=== PATIENT | female | born 1945 | race Caucasian/White ===

== ENCOUNTER 2017-05-06 13:11 | Observation (INO) ==
--- NOTE | 2017-05-06 13:17 | Emergency Department Note ---
Disposition Clinical Impression: Dizziness, Nausea Chest pain Qualifiers: Chest pain type: unspecified Qualified Code(s): R07.9 - Chest pain, unspecified Disposition: Admitted As Inpatient Condition: Good Referrals: Yuriy Benz DO [Primary Care Provider] - Forms: ED Satisfaction Letter Time of Disposition: 15:40 General Adult HPI - General Chief complaint: ED Dizziness Stated complaint: vomiting, dizzy Time Seen by Provider: 05/06/17 13:13 Source: patient, EMS Mode of arrival: EMS Limitations: no limitations Nursing Notes Reviewed: Yes Vital Signs Reviewed: Yes - History of Present Illness HPI Narrative: 71-year-old who states been dizzy for the last couple of days been having some chest pain today. States that she got nauseated and dry he this morning. Patient states that she does have a very strong family history of heart disease , history of hypertension, history of diabetes. Pt Subjective Complaint: Dizziness, chest pain Onset (ago): Just EDUCATIONAL GUIDANCE COUNSELOR Location: chest Radiation: non-radiation Pain Severity: moderate Quality: aching Consistency: intermittent Improves with: nothing Worsens with: nothing Associated symptoms: Reports: chest pain, cough Treatments Prior to Arrival: none - Related Data Home Medications Medication Instructions Recorded Confirmed Aspirin [Lo-Dose Aspirin EC] 81 mg PO DAILY 05/19/16 05/06/17 Diltiazem CD (24hr) [Cardizem CD] 300 mg PO DAILY 05/19/16 05/06/17 GlipiZIDE [Glipizide Xl] 5 mg PO DAILY 05/19/16 05/06/17 Labetalol HCl 200 mg PO BID 05/19/16 05/06/17 Losartan [Cozaar] 25 mg PO DAILY 05/19/16 05/06/17 Omeprazole 20 mg PO DAILY 05/19/16 05/06/17 metFORMIN [Glucophage] 500 mg PO BIDWM 05/19/16 05/06/17 Potassium Citrate [Urocit-K] 10 meq PO TID 05/06/17 05/06/17 Allergies Allergy/AdvReac Type Severity Reaction Status Date / Time No Known Allergies Allergy Verified 05/06/17 13:16 All systems ED: reviewed and negative except as stated. Constitutional: Denies: fever, chills, weakness, weight change Eyes: Denies: eye pain, eye discharge, vision change ENT ED: Denies: ear pain, throat pain, dental pain, hearing loss, epistaxis, congestion, dysphagia Cardiovascular: Reports: chest pain. Denies: palpitations, dyspnea on exertion , edema, syncope Respiratory: Denies: cough, dyspnea, wheezes, hemoptysis, stridor Gastrointestinal: Denies: abdominal pain, nausea, vomiting, diarrhea, constipation, hematemesis, melena, hematochezia Genitourinary: Denies: dysuria, frequency, hematuria, discharge Musculoskeletal: Denies: back pain, neck pain, arthralgia, myalgia Integumentary: Denies: rash, abrasion, lesions Neurological: Reports: other (Dizziness). Denies: headache, weakness, numbness , paresthesias, confusion, abnormal gait, vertigo Psychiatric: Denies: anxiety, depression, suicidal thoughts, homicidal thoughts , auditory hallucinations, visual hallucinations Endocrine: Denies: fatigue Hematological/Lymphatic: Denies: easy bleeding, easy bruising Allergic/Immunologic: Denies: facial swelling, urticaria Past Medical History - Past Medical History Medical history: Reports: atrial fibrillation, diabetes, hypertension Psychiatric history: Reports: no psych history - Social History Smoking Status: Never smoker Smokeless Tobacco Status: No Alcohol use: Reports: none Drug use: Reports: none Physical Exam - General Limitations: no limitations General appearance: alert, in no apparent distress - Head Head exam: atraumatic, normocephalic, normal inspection - Eye Eye exam: Present: normal appearance - ENT ENT exam: normal exam, normal oropharynx, mucous membranes moist - Neck Neck exam: Present: normal inspection, full ROM, trachea midline - Chest Chest inspection: Present: normal inspection, symmetric chest wall rise - Respiratory Respiratory exam: Present: normal lung sounds bilaterally - Cardiovascular Cardiovascular exam: Present: regular rate, normal rhythm, normal heart sounds - Abdominal Exam Abdominal exam: Present: soft, Non-Tender. Absent: tenderness, distention, guarding, rebound, rigidity - Extremities Exam Extremities exam: Present: normal inspection, full ROM. Absent: tenderness, pedal edema - Expanded Lower Extremity Exam Neurovascular/Tendon exam: Present: normal capillary refill Gait: not tested/not observed - Back Exam Back exam: Present: normal inspection, full ROM. Absent: tenderness - Neurological Exam Neurological exam: Present: alert, oriented X3 - Psychiatric Psychiatric exam: Present: normal affect, normal mood - Skin Skin exam: Present: warm, dry, intact, normal color Course - Reevaluation(s) Reevaluation #1: 71-year-old with history of diabetes comes in complaining of some chest pain some dizziness and some nausea. Initial EKG shows no acute changes initial troponin is negative CT of the head was negative patient will be admitted for evaluation. Time: 15:38 - Consultations Consultation #1: Discussed with , admit. Time: 15:39 Vital Signs Temperature 98.8 F 05/06/17 13:12 Pulse Rate 74 05/06/17 13:12 Respiratory Rate 18 05/06/17 13:12 Blood Pressure 174/90 05/06/17 13:12 O2 Sat by Pulse Oximetry 93 05/06/17 13:12 Temperature 98.8 F 05/06/17 13:12 Pulse Rate 68 05/06/17 13:58 Respiratory Rate 18 05/06/17 13:58 Blood Pressure 172/84 05/06/17 13:58 O2 Sat by Pulse Oximetry 98 05/06/17 13:58 Oxygen Delivery Oxygen Delivery Room Air Medical Decision Making - Lab Data Lab results reviewed: Yes I reviewed the patient's lab results. Result diagrams: 05/06/17 13:22 05/06/17 13:22 Lab Results 05/06/17 05/06/17 05/06/17 Range/Units 13:22 13:22 13:22 WBC 5.5 (4.3-11.1) K/mcL RBC 4.64 (3.82-4.97) M/mcL Hgb 14.2 (11.5-15.4) g/dL Hct 41.2 (35.3-44.9) % MCV 88.8 (83.0-100.0) fL MCH 30.6 (28.0-33.3) pg MCHC 34.5 (31.6-35.5) g/dL RDW 13.4 (11.5-14.5) % Plt Count 184 (140-400) K/mcL MPV 10.7 (9.4-12.4) fL Immature Gran % 0.5 (0-4) % Seg Neutrophils % 72.2 % Lymphocytes % 18.3 % Monocytes % 6.8 % Eosinophils % 1.8 % Basophils % 0.4 % Neutrophils # 3.9 (1.6-8.9) K/mcL Lymphocytes # 1.0 (0.6-4.6) K/mcL Monocytes # 0.4 (0.0-1.3) K/mcL Eosinophils # 0.1 (0.0-0.6) K/mcL Basophils # 0.0 (0.0-0.2) K/mcL Sodium 135 L (136-145) mEq/L Potassium 4.8 (3.5-5.1) mEq/L Chloride 104 (98-107) mEq/L Carbon Dioxide 24 (23-29) mEq/L BUN 17 (8-23) mg/dL Creatinine 0.66 (0.60-1.20) mg/dL Est GFR ( Amer) > 60 (> 60) Est GFR (Non-Af Amer) > 60 (> 60) BUN/Creatinine Ratio 26 (6-26) Glucose 150 H (70-105) mg/dL Calculated Osmolality 284 (280-300) Calcium 9.5 (8.6-10.3) mg/dL Troponin I < 0.03 (< 0.04) ng/mL Urine Color (Yellow) Urine Clarity (Clear) Urine pH (5.0-8.0) pH Units Ur Specific [place] (1.010-1.025) Urine Protein (Neg-Trace) mg/dL Urine Glucose (UA) (Normal) mg/dL Urine Ketones (Negative) mg/dL Urine Blood (Negative) Urine Nitrite (Negative) Urine Bilirubin (Negative) Urine Urobilinogen (Normal) mg/dL Ur Leukocyte Esterase (Negative) Urine Microscopic RBC (0-3) per hpf Urine Microscopic WBC (0-3) per hpf Ur Squamous Epith Cells (None-Few) per lpf Urine Bacteria (None-Few) per hpf Hyaline Casts (None-Few) per lpf Ur Culture Indicated? (NO) 05/06/17 Range/Units 13:36 WBC (4.3-11.1) K/mcL RBC (3.82-4.97) M/mcL Hgb (11.5-15.4) g/dL Hct (35.3-44.9) % MCV (83.0-100.0) fL MCH (28.0-33.3) pg MCHC (31.6-35.5) g/dL RDW (11.5-14.5) % Plt Count (140-400) K/mcL MPV (9.4-12.4) fL Immature Gran % (0-4) % Seg Neutrophils % % Lymphocytes % % Monocytes % % Eosinophils % % Basophils % % Neutrophils # (1.6-8.9) K/mcL Lymphocytes # (0.6-4.6) K/mcL Monocytes # (0.0-1.3) K/mcL Eosinophils # (0.0-0.6) K/mcL Basophils # (0.0-0.2) K/mcL Sodium (136-145) mEq/L Potassium (3.5-5.1) mEq/L Chloride (98-107) mEq/L Carbon Dioxide (23-29) mEq/L BUN (8-23) mg/dL Creatinine (0.60-1.20) mg/dL Est GFR ( Amer) (> 60) Est GFR (Non-Af Amer) (> 60) BUN/Creatinine Ratio (6-26) Glucose (70-105) mg/dL Calculated Osmolality (280-300) Calcium (8.6-10.3) mg/dL Troponin I (< 0.04) ng/mL Urine Color Yellow (Yellow) Urine Clarity Cloudy A (Clear) Urine pH 8.0 (5.0-8.0) pH Units Ur Specific [place] 1.021 (1.010-1.025) Urine Protein Trace (Neg-Trace) mg/dL Urine Glucose (UA) Normal (Normal) mg/dL Urine Ketones Negative (Negative) mg/dL Urine Blood Negative (Negative) Urine Nitrite Negative (Negative) Urine Bilirubin Negative (Negative) Urine Urobilinogen Normal (Normal) mg/dL Ur Leukocyte Esterase Small H (Negative) Urine Microscopic RBC 0-3 (0-3) per hpf Urine Microscopic WBC 0-3 (0-3) per hpf Ur Squamous Epith Cells Many H (None-Few) per lpf Urine Bacteria Few (None-Few) per hpf Hyaline Casts None Seen (None-Few) per lpf Ur Culture Indicated? NO (NO) - Radiology Data Radiology results reviewed: Yes I reviewed the patient's radiology results. Chest X-Ray 05/06/17 13:13 IMPRESSION: 1. No active pulmonary disease. 2. Stable cardiomegaly without overt failure. D/ / Gustavo Martinez MD / Gustavo Martinez MD Interpreting Provider: Gustavo Martinez MD Head CT 05/06/17 13:13 IMPRESSION: 1. No acute intracranial abnormality. 2. Atherosclerosis. D/ / Jamar Nicholson MD / Jamar Nicholsno MD Interpreting Provider: Jamar Nicholson MD - EKG Data EKG #1 EKG attestation: Yes I reviewed and interpreted this EKG. EKG shows normal: sinus rhythm Rate: normal Rhythm: NSR, PVC's Heart block present: 1st Degree Interpretation: no acute changes
[2017-05-06 13:31] LABS: Basophils % 0.4 %; Eosinophils # 0.1 K/mcL (0.0-0.6); Eosinophils % 1.8 %; Hematocrit 41.2 % (35.3-44.9); Hemoglobin 14.2 g/dL (11.5-15.4); Immature Granulocytes % 0.5 % (0-4); Lymphocytes % 18.3 %; Mean Corpuscular HGB Conc 34.5 g/dL (31.6-35.5); Mean Corpuscular Hemoglobin 30.6 pg (28.0-33.3); Mean Corpuscular Volume 88.8 fL (83.0-100.0); Mean Platelet Volume 10.7 fL (9.4-12.4); Monocytes # 0.4 K/mcL (0.0-1.3); Monocytes % 6.8 %; Neutrophils # 3.9 K/mcL (1.6-8.9); Platelet Count 184 K/mcL (140-400); Red Blood Count 4.64 M/mcL (3.82-4.97); Red Cell Distribution Width 13.4 % (11.5-14.5); Segmented Neutrophils % 72.2 %
[2017-05-06 13:47] LABS: BUN/Creatinine Ratio 26 (6-26); Blood Urea Nitrogen 17 mg/dL (8-23); Calcium 9.5 mg/dL (8.6-10.3); Carbon Dioxide 24 mEq/L (23-29); Chloride 104 mEq/L (98-107); Glucose 150 mg/dL (70-105); Osmolality,Calculated 284 (280-300); Potassium 4.8 mEq/L (3.5-5.1); Sodium 135 mEq/L (136-145); eGFR For African Americans > 60 (> 60); eGFR For Non-African Americans > 60 (> 60)
[2017-05-06 13:52] LABS: Bilirubin,Urine Negative (Negative); Blood,Urine Negative (Negative); Clarity,Urine Cloudy (Clear); Color,Urine Yellow (Yellow); Glucose,Urine (UA) Normal (Normal); Ketones,Urine Negative (Negative); Leukocyte Esterase,Urine Small (Negative); Nitrite,Urine Negative (Negative); Protein,Urine Trace mg/dL (Neg-Trace); Specific Gravity,Urine 1.021 (1.010-1.025); Urobilinogen,Urine Normal (Normal)
[2017-05-06 13:54] LABS: Bacteria,Urine Few per hpf (None-Few); Hyaline Casts,Urine None Seen per lpf (None-Few); RBC,Urine 0-3 per hpf (0-3); Squamous Epithelial Cell,Urine Many per lpf (None-Few); WBC,Urine 0-3 per hpf (0-3)
[2017-05-06] MEDS ORDERED: D5% in Water 1,000 ML IVC PRN ×2 (17:11→17:15)
[2017-05-06] MEDS ORDERED: *HR* Dextrose 50 % in Water (Syg) 50 ML SYRINGE IVP PRN ×2 (17:11→17:15)
[2017-05-06] MEDS ORDERED: Naloxone 0.4 MG/ML INJ IVP PRN (17:11)
[2017-05-06] MEDS ORDERED: Dextrose Gel 15 GM/37.5 ML TUBE PO PRN ×4 (17:11→17:15)
--- NOTE | 2017-05-06 17:25 | Internal Med History&Physical ---
<Raymond Little - Last Filed: 05/06/17 17:20> Date of Encounter: 05/06/17 Time of Encounter: 17:20 Assessment and Plan (1) Chest pain Status: Acute Patient appears to have dizziness due to BPV. Reporting dizziness is exacerbated with position change but improves with rest. 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 Neurological exam is unremarkable, given her presentation appears to be PPD -Hydralazine 10 mg every 6 when necessary for sustained SBP greater than 160 -Heparin 5000 U SQ BID -Echocardiogram -Meclizine PRN for dizziness Qualifiers: Chest pain type: unspecified Qualified Code(s): R07.9 - Chest pain, unspecified (2) Dizziness Status: Acute Continues to persist, exacerbated with activity. See plan above (3) Nausea Status: Acute Resume Zofran (4) DVT prophylaxis Status: Acute Heparin 5000 subcutaneous twice a day Internal Medicine - H&P: HPI Chief complaint: Dizziness Admitted From: Home Plans for Post Hospital Care: Home History of present illness: Ms. Torres is a 71 year old female with PMH of A. fib, diabetes and hypertension. She presents today with persistent dizziness for the last couple of days. Additionally, she reports some mild squeezing chest pressure approximately 4 days ago there was intermittent and only upon arising out of bed in the morning. Reports it lasted approximately 1 minute and did not return. She denied any associated dizziness, nausea, or diaphoresis. However, her main concern is dizziness. She reports the dizziness is exacerbated by position change and goes away with rest. She was having a prior history of BPV which she has taken meclizine with improvement. Past Med Surg Social Fam HX - Past Medical History Medical history: atrial fibrillation, diabetes, hypertension Psychiatric history: no psych history - Social History Smoking Status: Never smoker Smokeless Tobacco Status: No Alcohol use: none Drug use: none - Additional Family History Additional family history: Noncontributory Internal Medicine - H&P: Meds Aspirin [Lo-Dose Aspirin EC] 81 mg PO DAILY 05/19/16 [History] Diltiazem CD (24hr) [Cardizem CD] 300 mg PO DAILY 05/19/16 [History] GlipiZIDE [Glipizide Xl] 5 mg PO DAILY 05/19/16 [History] Labetalol HCl 200 mg PO BID 05/19/16 [History] Losartan [Cozaar] 25 mg PO DAILY 05/19/16 [History] Omeprazole 20 mg PO DAILY 05/19/16 [History] metFORMIN [Glucophage] 500 mg PO BIDWM 05/19/16 [History] Potassium Citrate [Urocit-K] 10 meq PO TID 05/06/17 [History] Meclizine HCl [Verticalm] 50 mg PO TID #180 tablet 05/09/17 [Rx] predniSONE [PredniSONE] 40 mg PO DAILY #6 tablet 05/09/17 [Rx] 3 Allergy/AdvReac Type Severity Reaction Status Date / Time No Known Allergies Allergy Verified 05/06/17 13:16 All Systems PM: A 10-system review of systems was performed and is negative for pertinent findings except as documented above in the HPI. - Constitutional Constitutional: no chills, no fatigue, no fever(s), no night sweats - EENT Eyes: no change in vision, no discharge, no pain, no photophobia Ears: no ear discharge, no ear pain, no tinnitus Nose, mouth and throat: no dysphagia, no nasal discharge, no neck pain, no sore throat - Cardiovascular Cardiovascular ROS IM: lightheadedness, no chest pain, no diaphoresis, no dyspnea, no palpitations, no syncope - Respiratory Respiratory: no cough, no dyspnea, no wheezing, no excessive phlegm production - Gastrointestinal Gastrointestinal: no abdominal pain, no diarrhea, no hematemesis, no hematochezia, no melena, no nausea, no vomiting - Genitourinary Genitourinary: no change in urinary stream, no dysuria, no flank pain, no hematuria - Musculoskeletal Musculoskeletal ROS IM: no numbness, no tingling - Integumentary Integumentary IM: no rash, no unusual bruising - Neurological Neurological ROS: dizziness, headache(s) (Endocrine), vertigo ( S couple of days ), no abnormal gait, no abnormal hearing, no abnormal movements, no abnormal speech, no behavioral changes, no confusion, no convulsions, no focal weakness, no lack of coordination, no numbness, no tingling, no tremor(s), no weakness - Hematologic/Lymphatic Hematologic/Lymphatic: no easy bruising - Constitutional Vitals: Temp Pulse Resp BP Pulse Ox 0 F L 68 18 158/94 98 05/06/17 17:03 05/06/17 13:58 05/06/17 17:03 05/06/17 17:03 05/06/17 13:58 General appearance: Present: cooperative, A&O X 3, no acute distress, answers questions appropriately - Head Head exam: Present: atraumatic, normocephalic - Eye Eye exam: Present: PERRL, conjuntiva pink, sclera anicteric Pupils: Present: PERRL - Neck Neck exam general surgery: Present: supple, trachea midline. Absent: lymphadenopathy - Respiratory Respiratory exam: Present: CTAB. Absent: accessory muscle use, rales, rhonchi, wheezes - Cardiovascular Cardiovascular exam: Present: RRR, +S1, +S2. Absent: diastolic murmur, gallop, rubs, systolic murmur - GI/Abdominal GI/Abdominal exam: Present: normal bowel sounds, soft, no peritoneal signs. Absent: distended, tenderness - Extremities Exam Extremities exam: Present: warm, radial pulses palpable and symmetrical. Absent : calf tenderness, cyanotic, pedal edema - Neurological Exam Neurological exam: Present: CN II-XII intact, oriented X3, no focal deficits. Absent: pronater drift, facial droop, speech deficit - Skin Skin exam: Present: dry, intact Internal Med - H&P Results - Labs CBC & Chem 7: 05/06/17 13:22 05/06/17 13:22 - EKG Data -: EKG Interpreted by Myself EKG shows normal: sinus rhythm Rate: normal - EKG Data Prior EKG available for review: yes When compared to previous EKG: there is no significant change Interpretation IM: normal EKG - Diagnostic Studies CT scan - head Status: image reviewed by me Additional comments: No acute intracranial abnormality Chest x-ray Status: image reviewed by me Additional comments: No active pulmonary process <Hoa Vivas - Last Filed: 06/06/17 09:50> Date of Encounter: 06/06/17 Internal Medicine - H&P: HPI History of present illness: Ms. Brian is a 71 year old female All Systems PM: A 10-system review of systems was performed and is negative for pertinent findings except as documented above in the HPI. - Constitutional Vitals: Temp Pulse Resp BP Pulse Ox 97.5 F L 76 18 116/71 96 05/09/17 08:00 05/09/17 08:00 05/09/17 08:00 05/09/17 08:00 05/09/17 08:00 Internal Med - H&P Results - Labs CBC & Chem 7: 05/07/17 00:27 05/07/17 00:27 - Impressions ITS Impressions Echocardiogram 05/06/17 17:19 Impressions: LVEF 60%. LV wall thickness upper limits of normal. Mild left ventricular diastolic dysfunction. Normal right ventricular structure and function. No significant valvular dysfunction. No pulmonary hypertension by TR gradient. Left Ventricular Wall Motion: Rest Echo Findings The apex, apical inferior, mid inferior, basal inferior, apical anterior, mid anterior and basal anterior garcia were not visualized. All other wall segments showed normal motion. Findings: Study Quality * Technically somewhat challenging - not all windows are well visualized. ECG Findings * Normal sinus rhythm. Left Ventricle * Basal septal hypertrophy. * Normal LV size. * LV wall thickness upper limits of normal. * Mild left ventricular diastolic dysfunction. * LVEF 60%. Right Ventricle * Normal right ventricular structure and function. Left Atrium * Normal left atrial size. Right Atrium * Normal right atrial size. Aortic Valve * No aortic regurgitation. * Aortic valve not well visualized. * No aortic stenosis. Mitral Valve * Normal mitral valve structure. * No mitral regurgitation. * No mitral stenosis. * Mild mitral annular calcification Tricuspid Valve * Tricuspid valve not well visualized. * No tricuspid regurgitation. Pulmonic Valve * Pulmonic valve is not well visualized. * No pulmonic stenosis. * No pulmonic regurgitation. Pulmonary Artery * Pulmonary artery not well visualized. Aorta * Normally sized aortic root. Pericardium * There is no pericardial effusion present. Interatrial Septum * Interatrial septum not well evaluated. IVC * The IVC is not well evaluated. Brain MRI 05/07/17 13:10 IMPRESSION: Mild cerebral atrophy. Mild chronic small vessel ischemic changes. No acute brain parenchymal abnormality. D/ / 05/07/2017 17:46:41 Rosalina Valentin MD / latrice Interpreting Provider: Rosalina Valentin MD - Attending Attestation I personally and independently interviewed and examined the patient with FACILITIES PROJECT MANAGER, and I reviewed the patient's medical record with her. I am in agreement with the assessment and proposed treatment plan. I discussed my findings and recommendation with the patient and answer all questions. The patient's medical records were edited to accurately reflect this encounter.
[2017-05-06] MEDS: *HR* Heparin 5,000 UNIT/ML VIAL SQ SCH (18:36)
[2017-05-06] MEDS: Potassium Citrate 10 MEQ TABLET.ER PO SCH (20:01)
[2017-05-06] MEDS: Insulin LISPRO 300 UNITS/3 ML VIAL SQ SCH (20:43)
[2017-05-07 01:31] LABS: Basophils % 0.2 %; Eosinophils # 0.1 K/mcL (0.0-0.6); Eosinophils % 1.8 %; Hematocrit 38.2 % (35.3-44.9); Hemoglobin 12.9 g/dL (11.5-15.4); Immature Granulocytes % 0.4 % (0-4); Immature Platelets 4.2 % (1.1-6.1); Lymphocytes # 1.5 K/mcL (0.6-4.6); Lymphocytes % 30.5 %; Mean Corpuscular HGB Conc 33.8 g/dL (31.6-35.5); Mean Corpuscular Hemoglobin 30.4 pg (28.0-33.3); Mean Corpuscular Volume 89.9 fL (83.0-100.0); Monocytes # 0.5 K/mcL (0.0-1.3); Neutrophils # 2.8 K/mcL (1.6-8.9); Platelet Count 179 K/mcL (140-400); Red Blood Count 4.25 M/mcL (3.82-4.97); Red Cell Distribution Width 13.7 % (11.5-14.5); Segmented Neutrophils % 57.1 %
[2017-05-07 01:48] LABS: BUN/Creatinine Ratio 28 (6-26); Blood Urea Nitrogen 20 mg/dL (8-23); Calcium 9.1 mg/dL (8.6-10.3); Carbon Dioxide 26 mEq/L (23-29); Chloride 104 mEq/L (98-107); Glucose 124 mg/dL (70-105); Osmolality,Calculated 290 (280-300); Sodium 138 mEq/L (136-145); eGFR For African Americans > 60 (> 60); eGFR For Non-African Americans > 60 (> 60)
[2017-05-07] MEDS: *HR* Heparin 5,000 UNIT/ML VIAL SQ SCH ×2 (05:39→17:13)
--- NOTE | 2017-05-07 06:16 | Electrocardiograph Report ---
[place] [facility] Test Date: 2017-05-06 Pat Name: Sherry Brian Department: 103 Room: 3B54 Gender: F It Application Development Manager: TMR : 1945 Requested By: Fred Kay Order Number: [id number] Reading MD: Kiran Craig MD Measurements Intervals [place] Rate: 72 P: 40 CO: 235 QRS: 10 QRSD: 96 T: 51 QT: 390 QTc: 415 Interpretive Statements SINUS RHYTHM WITH FIRST DEGREE AV BLOCK WITH OCCASIONAL VENTRICULAR PREMATURE COMPLEXES INFERIOR MYOCARDIAL INFARCTION Electronically Signed On 05-07-2017 6:15:10 EST by Kiran Craig MD
[2017-05-07] MEDS: Potassium Citrate 10 MEQ TABLET.ER PO SCH ×3 (09:05→20:43)
[2017-05-07] MEDS: Insulin LISPRO 300 UNITS/3 ML VIAL SQ SCH ×4 (09:05→20:43)
[2017-05-07] MEDS: Aspirin Enteric Coated 81 MG Tablet PO SCH (09:05)
[2017-05-07] MEDS: Diltiazem CD (24hr) 300 MG CAPSULE PO SCH (09:06)
--- NOTE | 2017-05-07 14:28 | ENT - Consult Note ---
Date of Encounter: 05/08/17 Time of Encounter: 14:26 Assessment and Plan (1) Hypertension Current Visit: Yes Status: Acute Patient with elevated blood pressure on admission, this associated with chest pain most likely the cause of her dizziness sensation. Patient's story is not consistant with BPPV and she also tested negative at the bedside. Recommend optimization of her BP. Qualifiers: Hypertension type: essential hypertension Qualified Code(s): I10 - Essential (primary) hypertension (2) Chest pain Current Visit: Yes Status: Acute evaluation by primary team. Qualifiers: Chest pain type: unspecified Qualified Code(s): R07.9 - Chest pain, unspecified (3) Dizziness Current Visit: Yes Status: Acute Patient with feeling of offbalance as well as wanting to walk to one side. Patient's story isn't consistant with BPPV and she also had a negative Dixhallpike at the bedside. There is a possibility of a false negative test, but in the setting of associated high blood pressure to extremes of 200 systolic and associated chest pain, would highly doubt that her symptoms are otologic in nature. Patient can follow up as outpatient for vestibular testing and audiogram as an outpatient in 2-4 weeks if symptoms continue after through workup for stroke. History of Present Illness Consult date: 05/07/17 Reason for ENT Consult: vertigo Requesting physician: Diamond Quintanilla History of present illness: Patient is a 71 year old female, who was admitted for dizziness and chest pain. Patient reports her symptoms of dizziness and chest discomfort began approximately 4 days ago and started when arising from her bed in the morning. She states she is unable to walk and balance correctly and described her symptoms being mostly unilateral when symptoms initially began. Patient stated her chest discomfort was brief and "resolved within a few minutes," and her symptoms of dizziness have been intermittent since that time. Patient also reports high blood pressures at the time of her admission with systolic in the 200's. Past Med Surg Social Fam HX - Past Medical History Medical history: atrial fibrillation, diabetes, hypertension Psychiatric history: no psych history - Past Surgical History Surgical History: cholecystectomy, hysterectomy - Social History Smoking Status: Never smoker Smokeless Tobacco Status: No Alcohol use: none Drug use: none - Family History Mother Hx Family Cardiac Disorders: Yes Hx Family Respiratory Disorders: Yes Hx Family Cancer: No Hx Family GI Disorders: No Hx Family Genitourinary Disorders: Yes (UTI s) Hx Family Endocrine Disorder: Yes (DM) Hx Family Musculoskeletal Disorders: No Hx Family Neuromuscular Disorders: No Hx Family Neurologic Disorders: No Hx Family HEENT Disorders: No Hx Family Autoimmune Disorders: No Hx Family Reproductive Disorders: No Hx Family Psychosocial Disorders: No Father Hx Family Cardiac Disorders: No Hx Family Respiratory Disorders: Yes Hx Family Cancer: No Hx Family GI Disorders: Yes Hx Family Genitourinary Disorders: No Hx Family Endocrine Disorder: No Hx Family Musculoskeletal Disorders: No Hx Family Neuromuscular Disorders: No Hx Family Neurologic Disorders: No Hx Family HEENT Disorders: No Hx Family Autoimmune Disorders: No Hx Family Reproductive Disorders: No Hx Family Psychosocial Disorders: No Hx Family Medical Disorders: No Medications and Allergies Aspirin [Lo-Dose Aspirin EC] 81 mg PO DAILY 05/19/16 [History] Diltiazem CD (24hr) [Cardizem CD] 300 mg PO DAILY 05/19/16 [History] GlipiZIDE [Glipizide Xl] 5 mg PO DAILY 05/19/16 [History] Labetalol HCl 200 mg PO BID 05/19/16 [History] Losartan [Cozaar] 25 mg PO DAILY 05/19/16 [History] Omeprazole 20 mg PO DAILY 05/19/16 [History] metFORMIN [Glucophage] 500 mg PO BIDWM 05/19/16 [History] Potassium Citrate [Urocit-K] 10 meq PO TID 05/06/17 [History] 3 Allergy/AdvReac Type Severity Reaction Status Date / Time No Known Allergies Allergy Verified 05/06/17 13:16 ENT - ROS - EENT Eyes: right: Blurred vision Nose, mouth and throat: dizziness, vertigo, no abnormal hearing, no change in voice - Cardiovascular Cardiovascular ROS IM: chest pain - Respiratory no cough, no dyspnea - Neurological Neurological ROS: abnormal gait ENT Exam Initial Vital Signs Temp Pulse Resp BP Pulse Ox 98.8 F 74 18 174/90 93 05/06/17 13:12 05/06/17 13:12 05/06/17 13:12 05/06/17 13:12 05/06/17 13:12 - General physical appearance well developed, well nourished, no distress, obese - Eyes other (NO NYSTAGMUS), PERRL, normal ocular movement - ENT normal pinna, normal nares, Other (Ears: EACs clear bilaterally, middle ear well aerated, no effusion. ) - Neck no masses, no bruits, trachea midline, no lymphadectomy - Respiratory normal expansion, normal respiratory effort - Integumentary other (erythematous birthmark under right eye, multiple skin tags along face and neck) - Neurologic CN 2-12 grossly intact, normal coordination, normal sensation, other (strength symmetric bilateral upper and lower lower extremeties. DIXHALLPIKE NEGATIVE BILATERALLY) - Psychiatric oriented to time, oriented to person, oriented to place Exam Initial Vital Signs Temp Pulse Resp BP Pulse Ox 98.8 F 74 18 174/90 93 05/06/17 13:12 05/06/17 13:12 05/06/17 13:12 05/06/17 13:12 05/06/17 13:12 Results - Labs 05/07/17 00:27 05/07/17 00:27 Abnormal lab results BUN/Creatinine Ratio 28 (6-26) H 05/07/17 00:27 Glucose 124 mg/dL (70-105) H 05/07/17 00:27 POC Glucose 165 (58-89) H 05/07/17 07:14 Urine Clarity Cloudy (Clear) A 05/06/17 13:36 Ur Leukocyte Esterase Small (Negative) H 05/06/17 13:36 Ur Squamous Epith Cells Many per lpf (None-Few) H 05/06/17 13:36 Diabetes panel 05/07/17 Range/Units 00:27 Sodium 138 (136-145) mEq/L Potassium 4.0 (3.5-5.1) mEq/L Chloride 104 (98-107) mEq/L Carbon Dioxide 26 (23-29) mEq/L BUN 20 (8-23) mg/dL Creatinine 0.71 (0.60-1.20) mg/dL Glucose 124 H (70-105) mg/dL Calcium 9.1 (8.6-10.3) mg/dL Calcium panel 05/07/17 Range/Units 00:27 Calcium 9.1 (8.6-10.3) mg/dL Pituitary panel 05/07/17 Range/Units 00:27 Sodium 138 (136-145) mEq/L Potassium 4.0 (3.5-5.1) mEq/L Chloride 104 (98-107) mEq/L Carbon Dioxide 26 (23-29) mEq/L BUN 20 (8-23) mg/dL Creatinine 0.71 (0.60-1.20) mg/dL Glucose 124 H (70-105) mg/dL Calcium 9.1 (8.6-10.3) mg/dL Adrenal panel 05/07/17 Range/Units 00:27 Sodium 138 (136-145) mEq/L Potassium 4.0 (3.5-5.1) mEq/L Chloride 104 (98-107) mEq/L Carbon Dioxide 26 (23-29) mEq/L BUN 20 (8-23) mg/dL Creatinine 0.71 (0.60-1.20) mg/dL Glucose 124 H (70-105) mg/dL Calcium 9.1 (8.6-10.3) mg/dL All other labs normal. Consult Discharge Plan - Plan Referrals: Yuriy Benz DO [Primary Care Provider] - 05/15/17 9:30 am
--- NOTE | 2017-05-07 16:01 | Internal Med Progress Note ---
Date of Encounter: 05/07/17 Time of Encounter: 14:00 - Assessment and plan (1) Dizziness Current Visit: Yes Status: Acute Assessment and plan: presented with acute onset of dizziness, described as rooms pending with associated vomiting. Etiology unknown at this time. Head CT non-acute. Evaluated by ENT who does not suspect true vertigo as Dixhallpike negative. Patient reports history of possible MS and/or TIA in the past. Neurologically intact. Brain MRI pending. (2) Chest pain Current Visit: Yes Status: Acute Assessment and plan: with reported chest heaviness. Serial troponins negative. EKG without acute ST changes. TTE with EF 60%, mild diastolic dysfunction, normal systolic function, no wall motion abnormalities. CP pain now resolved. Hold on further workup at this time. Monitor on telemetry. Qualifiers: Chest pain type: unspecified Qualified Code(s): R07.9 - Chest pain, unspecified (3) Hypertension Current Visit: Yes Status: Acute Assessment and plan: per hx. BP uncontrolled upon arrival with SBP is a 170s. Discussed possibly be contributing to dizziness. BP variable overall controlled and acceptable. Continue home BP medication. Monitor BP and titrate PRN Qualifiers: Qualified Code(s): I10 - Essential (primary) hypertension (4) DVT prophylaxis Current Visit: Yes Status: Acute Assessment and plan: heparin - Time Spent With Patient less than 15 minutes - Subjective Interval history: Seen and examined at bedside. Patient is new to me, information obtained from chart review and patient report. Patient says she still with some symptoms of vertigo, described as room spinning but overall improved. Reports chronic blurred vision to right eye no different from previous. No numbness or tingling , extremity weakness. Patient sent reports episode of projectile vomiting with vertigo onset. - Constitutional Vitals: Temp Pulse Resp BP Pulse Ox 98.5 F 71 14 142/76 94 05/07/17 15:51 05/07/17 15:51 05/07/17 15:51 05/07/17 15:51 05/07/17 15:51 General appearance: Present: cooperative, A&O X 3, no acute distress, answers questions appropriately - Head Head exam: Present: atraumatic, normocephalic - Eye Eye exam: Present: PERRL, conjuntiva pink, sclera anicteric Pupils: Present: PERRL - Neck Neck exam general surgery: Present: supple, trachea midline. Absent: lymphadenopathy - Respiratory Respiratory exam: Present: CTAB. Absent: accessory muscle use, rales, rhonchi, wheezes - Cardiovascular Cardiovascular exam: Present: RRR, +S1, +S2. Absent: diastolic murmur, gallop, rubs, systolic murmur - GI/Abdominal GI/Abdominal exam: Present: normal bowel sounds, soft, no peritoneal signs. Absent: distended, tenderness - Extremities Exam Extremities exam: Present: warm, radial pulses palpable and symmetrical. Absent : calf tenderness, cyanotic, pedal edema - Neurological Exam Neurological exam: Present: CN II-XII intact, oriented X3, no focal deficits. Absent: pronater drift, facial droop, speech deficit - Skin Skin exam: Present: dry, intact Internal Medicine: Result - Labs CBC & Chem 7: 05/07/17 00:27 05/07/17 00:27 Labs: Short CBC 05/07/17 Range/Units 00:27 WBC 4.9 (4.3-11.1) K/mcL Hgb 12.9 (11.5-15.4) g/dL Hct 38.2 (35.3-44.9) % Plt Count 179 (140-400) K/mcL Neutrophils # 2.8 (1.6-8.9) K/mcL BMP 05/07/17 00:27 Sodium 138 Potassium 4.0 Chloride 104 Carbon Dioxide 26 BUN 20 Creatinine 0.71 Glucose 124 H Calcium 9.1 Cardiac Enzymes 05/06/17 05/07/17 Range/Units 19:05 00:27 Troponin I < 0.03 < 0.03 (< 0.04) ng/mL - Impressions Impressions Echocardiogram 05/06/17 17:19 Impressions: LVEF 60%. LV wall thickness upper limits of normal. Mild left ventricular diastolic dysfunction. Normal right ventricular structure and function. No significant valvular dysfunction. No pulmonary hypertension by TR gradient. Left Ventricular Wall Motion: Rest Echo Findings The apex, apical inferior, mid inferior, basal inferior, apical anterior, mid anterior and basal anterior garcia were not visualized. All other wall segments showed normal motion. Findings: Study Quality * Technically somewhat challenging - not all windows are well visualized. ECG Findings * Normal sinus rhythm. Left Ventricle * Basal septal hypertrophy. * Normal LV size. * LV wall thickness upper limits of normal. * Mild left ventricular diastolic dysfunction. * LVEF 60%. Right Ventricle * Normal right ventricular structure and function. Left Atrium * Normal left atrial size. Right Atrium * Normal right atrial size. Aortic Valve * No aortic regurgitation. * Aortic valve not well visualized. * No aortic stenosis. Mitral Valve * Normal mitral valve structure. * No mitral regurgitation. * No mitral stenosis. * Mild mitral annular calcification Tricuspid Valve * Tricuspid valve not well visualized. * No tricuspid regurgitation. Pulmonic Valve * Pulmonic valve is not well visualized. * No pulmonic stenosis. * No pulmonic regurgitation. Pulmonary Artery * Pulmonary artery not well visualized. Aorta * Normally sized aortic root. Pericardium * There is no pericardial effusion present. Interatrial Septum * Interatrial septum not well evaluated. IVC * The IVC is not well evaluated. Consult Discharge Plan - Plan Referrals: Yuriy Benz DO [Primary Care Provider] -
[2017-05-08] MEDS: *HR* Heparin 5,000 UNIT/ML VIAL SQ SCH ×2 (05:20→17:12)
[2017-05-08] MEDS: Insulin LISPRO 300 UNITS/3 ML VIAL SQ SCH ×4 (08:03→22:25)
[2017-05-08] MEDS: Diltiazem CD (24hr) 300 MG CAPSULE PO SCH (08:15)
[2017-05-08] MEDS: Aspirin Enteric Coated 81 MG Tablet PO SCH (08:15)
[2017-05-08] MEDS: Potassium Citrate 10 MEQ TABLET.ER PO SCH ×3 (08:15→22:25)
[2017-05-08] MEDS ORDERED: 0.9 % Sodium Chloride 1,000 ML IVC ONE (12:09)
--- NOTE | 2017-05-08 14:41 | Internal Med Progress Note ---
Date of Encounter: 05/08/17 Time of Encounter: 14:37 - Assessment and plan (1) Vertigo Current Visit: Yes Status: Acute Assessment and plan: presented with acute onset of dizziness, described as room spinning with associated vomiting. Etiology unknown at this time. Head CT non-acute. Brain MRI non-acute. Evaluated by ENT who does not suspect true vertigo as Dixhallpike negative. Symptoms persist on 05/08 despite increasing meclizine and IV fluids; discussed with Dr. Swain who recommended trying steroid burst for possible vestibular neuritis. Will consult Neurology for further recommendations as well. (2) Chest pain Current Visit: Yes Status: Acute Assessment and plan: with reported chest heaviness. Serial troponins negative. EKG without acute ST changes. TTE with EF 60%, mild diastolic dysfunction, normal systolic function, no wall motion abnormalities. CP pain now resolved. Hold on further workup at this time. Monitor on telemetry. Qualifiers: Chest pain type: unspecified Qualified Code(s): R07.9 - Chest pain, unspecified (3) Hypertension Current Visit: Yes Status: Acute Assessment and plan: per hx. BP uncontrolled upon arrival with SBP is a 170s. BP variable overall controlled and acceptable. Continue home BP medication. Monitor BP and titrate PRN Qualifiers: Qualified Code(s): I10 - Essential (primary) hypertension (4) DVT prophylaxis Current Visit: Yes Status: Acute Assessment and plan: heparin - Subjective Interval history: Seen and examined at bedside; patient still symptomatic with sensation of room spinning with position changes or ambulation. Symptoms improved with laying still and closing eyes. Plaintive patient has been at length testing thus far including head CT, brain MRI and ENT evaluation. She is agreeable for increase in meclizine, IV fluids and steroid burst. - Constitutional Vitals: Temp Pulse Resp BP Pulse Ox 97.9 F 61 16 165/83 95 05/08/17 11:51 05/08/17 11:51 05/08/17 11:51 05/08/17 11:51 05/08/17 11:51 General appearance: Present: cooperative, A&O X 3, no acute distress, answers questions appropriately - Head Head exam: Present: atraumatic, normocephalic - Eye Eye exam: Present: PERRL, conjuntiva pink, sclera anicteric Pupils: Present: PERRL - Neck Neck exam general surgery: Present: supple, trachea midline. Absent: lymphadenopathy - Respiratory Respiratory exam: Present: CTAB. Absent: accessory muscle use, rales, rhonchi, wheezes - Cardiovascular Cardiovascular exam: Present: RRR, +S1, +S2. Absent: diastolic murmur, gallop, rubs, systolic murmur - GI/Abdominal GI/Abdominal exam: Present: normal bowel sounds, soft, no peritoneal signs. Absent: distended, tenderness - Extremities Exam Extremities exam: Present: warm, radial pulses palpable and symmetrical. Absent : calf tenderness, cyanotic, pedal edema - Neurological Exam Neurological exam: Present: CN II-XII intact, oriented X3, no focal deficits. Absent: pronater drift, facial droop, speech deficit - Skin Skin exam: Present: dry, intact Internal Medicine: Result - Labs CBC & Chem 7: 05/07/17 00:27 05/07/17 00:27 - Impressions Impressions Brain MRI 05/07/17 13:10 IMPRESSION: Mild cerebral atrophy. Mild chronic small vessel ischemic changes. No acute brain parenchymal abnormality. D/ / 05/07/2017 17:46:41 Rosalina Valentin MD / [facility] Interpreting Provider: Rosalina Valentin MD Consult Discharge Plan - Plan Referrals: Yuriy Benz DO [Primary Care Provider] - 05/15/17 9:30 am
[2017-05-08] MEDS: predniSONE 20 MG TABLET PO SCH (15:19)
[2017-05-09] MEDS: *HR* Heparin 5,000 UNIT/ML VIAL SQ SCH (05:45)
[2017-05-09 08:02] VITALS: BP 116/71
[2017-05-09] MEDS: Insulin LISPRO 300 UNITS/3 ML VIAL SQ SCH (08:21)
[2017-05-09] MEDS: Aspirin Enteric Coated 81 MG Tablet PO SCH (08:22)
[2017-05-09] MEDS: Potassium Citrate 10 MEQ TABLET.ER PO SCH (08:22)
[2017-05-09] MEDS: predniSONE 20 MG TABLET PO SCH (08:22)
--- NOTE | 2017-05-09 08:58 | Discharge Summary ---
Date of Encounter: 05/09/17 Time of Encounter: 08:56 - Discharge Diagnosis (1) Vestibular neuritis Priority: Primary Status: Suspected Comments: suspected; presented with acute onset of dizziness, described as room spinning with associated vomiting. Head CT non-acute. Brain MRI non-acute. Bilateral carotid dopplers normal. Evaluated by ENT who noted negative [place]. Neurology suspected possible viral neuritis. Symptoms significantly improved with increasing meclazine, IV fluids and steroids. Continue steroid burst at discharge, follow-up with ENT in 2-4 weeks Qualifiers: Laterality: unspecified laterality Qualified Code(s): H81.20 - Vestibular neuronitis, unspecified ear (2) Chest pain Priority: Primary Status: Resolved Comments: with reported chest heaviness per ED notes however patient denied. Serial troponins negative. EKG without acute ST changes. TTE with EF 60%, mild diastolic dysfunction, normal systolic function, no wall motion abnormalities. No chest pain/heaviness recurrence while inpatient. Advised to follow-up with PCP. Cont ASA Qualifiers: Chest pain type: unspecified Qualified Code(s): R07.9 - Chest pain, unspecified (3) Hypertension Priority: Primary Status: Acute Comments: per hx. BP uncontrolled upon arrival with SBP is a 170s. BP remained variable but acceptable. Cont home BP medications. Recommend follow-up with PCP within 1 -2 weeks for BP recheck Qualifiers: Hypertension type: essential hypertension Qualified Code(s): I10 - Essential (primary) hypertension (4) Diabetes Priority: Primary Status: Acute Comments: per hx. Blood sugars controlled. Cont home diabetes medication regimen. Qualifiers: Diabetes mellitus type: type 2 Diabetes mellitus complication status: without complication Diabetes mellitus oil heaterman insulin use: without oil heaterman use Qualified Code(s): E11.9 - Type 2 diabetes mellitus without complications - Discharge Medications Prescriptions: Meclizine HCl [Verticalm] 50 mg PO TID #180 tablet predniSONE [PredniSONE] 40 mg PO DAILY #6 tablet Home Medications: Aspirin [Lo-Dose Aspirin EC] 81 mg PO DAILY 05/19/16 [History] Diltiazem CD (24hr) [Cardizem CD] 300 mg PO DAILY 05/19/16 [History] GlipiZIDE [Glipizide Xl] 5 mg PO DAILY 05/19/16 [History] Labetalol HCl 200 mg PO BID 05/19/16 [History] Losartan [Cozaar] 25 mg PO DAILY 05/19/16 [History] Omeprazole 20 mg PO DAILY 05/19/16 [History] metFORMIN [Glucophage] 500 mg PO BIDWM 05/19/16 [History] Potassium Citrate [Urocit-K] 10 meq PO TID 05/06/17 [History] Meclizine HCl [Verticalm] 50 mg PO TID #180 tablet 05/09/17 [Rx] predniSONE [PredniSONE] 40 mg PO DAILY #6 tablet 05/09/17 [Rx] Allergies/Adverse Reactions: 3 Allergy/AdvReac Type Severity Reaction Status Date / Time No Known Allergies Allergy Verified 05/06/17 13:16 Procedures/tests Complete & Pending: Procedures Performed prior 72 hours Category Date Time Status MR head/brain wo con [MR] Routine MRI 05/07/17 13:10 Draft EV carotid duplex imaging BI Routine Y 05/08/17 14:54 Completed EV echocardiogram Routine Y 05/06/17 17:19 Completed Date of admission: 05/06/17 16:23 Primary care physician: Yuriy Benz, Consults: 05/07/17 13:14 Consult to ENT [CONS] Routine Consulting Provider: [facility] Reason for Consult: vertigo Call Completed: Yes 05/08/17 14:46 Consult to Neurology [CONS] Routine Consulting Provider: [facility] Reason for Consult: vertigo Call Completed: Yes Discharging clinician: Diamond Quintanilla Anticipated date of discharge: 05/09/17 - Patient Status Disposition: Home, Self-Care Condition: Good Functional capacity at discharge: uses cane/walker Overall status at discharge: patient is progressing back to baseline - Discharge Instructions Instructions: Vertigo (DC), Meclizine (By mouth), Prednisone (By mouth) Follow Up With: Yuriy Benz DO [Primary Care Provider] - 05/15/17 9:30 am Additional Instructions: INTRODUCTION Dizziness is a feeling that may be hard to describe, but often includes a feeling that you are spinning or tilting, or that you are about to fall or pass out. Dizziness can also cause you to feel lightheaded or giddy, or have difficulty walking straight. Many people who feel dizzy have vertigo, a specific type of dizziness. Vertigo is a sense of spinning dizziness, swaying, or tilting. You may feel that you are moving or that the room is moving around you. Vertigo can be caused by a number of different problems involving the inner ear or brain. Some of these problems are not serious while others can be life threatening. This article will describe the symptoms of vertigo and help you to know when to seek help. VERTIGO SYMPTOMS The most common symptoms of vertigo include a feeling of: -Spinning (either you or the room around you) -Tilting or swaying -Feeling off balance These feelings come and go, and may last seconds, hours, or days. You may feel worse when you move your head, change positions (stand up, roll over), cough, or sneeze. Along with vertigo, you may: -Vomit or feel nauseous -Have a headache or be sensitive to light and noise -See double, have trouble speaking or swallowing, or feel weak -Feel short of breath or sweaty, have a racing heart beat If you seek treatment for vertigo, you should mention how long these symptoms last, what triggers the symptoms, and any other associated problems. These clues can help point to the cause of vertigo. COMMON CAUSES OF VERTIGO Collections of calcium, inflammation, and certain infections can cause problems in the vestibular system. The vestibular system includes parts of the inner ear and nervous system, which controls balance -Benign paroxysmal positional vertigo (BPPV) BPPV, sometimes called benign positional vertigo, positional vertigo, postural vertigo, or simply vertigo, is a type of vertigo that develops due to collections of calcium in the inner ear. These collections are called canaliths. Moving the canaliths (called canalith repositioning) is a common treatment for BPPV. Vertigo is typically brief in people with BPPV, lasting seconds to minutes. Vertigo can be triggered by moving the head in certain ways. -Meniere disease Meniere disease is a condition that causes repeated spells of vertigo, hearing loss, and ringing in the ears. Spells can last several minutes or hours. It is probably caused by a buildup of fluid in the inner ear. -Vestibular neuritis Vestibular neuritis, also known as labyrinthitis, is probably caused by a virus that causes swelling around the balance nerve. People with vestibular neuritis develop sudden, severe vertigo, nausea, vomiting , and difficulty walking or standing up; these problems can last several days. Some people also develop difficulty hearing in one ear. -Head injury Head injuries can affect the vestibular system in a variety of ways, and lead to vertigo. -Medications Other medications can affect the function of the inner ear or brain and lead to vertigo. Rarely, some medications can actually damage the inner ear. -Migraines In a condition called vestibular migraine or migrainous vertigo, vertigo can be caused by a migraine. This type of vertigo usually happens along with a headache, but some patients have migraines without headache. -Other brain problems Stroke or TIA (transient ischemic attack), bleeding in the brain, or multiple sclerosis can also cause vertigo. There are usually other symptoms, besides vertigo, that happen with these brain problems. WHEN TO SEEK HELP You should seek help immediately if you have dizziness or vertigo along with any of the following: -New or severe headache -Temperature greater than 100.4F (38C) -Seeing double or having trouble seeing clearly -Trouble speaking or hearing -Weakness in an arm or leg -An inability to walk without assistance -Passing out -Numbness or tingling -Chest pain -Vomiting that will not stop In addition, you should seek help immediately if you have vertigo that lasts for several minutes or more if you: -Are an older adult -Have had a stroke in the past -Have risk factors for stroke (high blood pressure, diabetes, smoking) If you have dizziness or vertigo that comes and goes but you do not have any of the above problems, make an appointment with your doctor or nurse. He or she will perform a physical exam and ask about your symptoms and medical history. Your doctor or nurse will probably check the following: -Your eyes You might be asked to follow an object with your eyes, or focus on something while moving your head from side to side. -Your balance and gait This involves watching you walk, to see if you lean or tilt to one side, as well as checking your balance while you stand still. -Your hearing Your doctor or nurse will check your hearing in both ears. Depending on what they find during your examination, your doctor might do additional tests as well. In some cases, he or she will order an imaging test, such as an MRI, to look at what is going on in your brain. VERTIGO TREATMENT In most people, vertigo is bothersome but it is not caused by a serious problem. Treatment for vertigo aims to treat the underlying cause ( if the cause is known), relieve the bothersome symptoms, and help with recovery. This section will discuss treatment for symptoms and treatments to help with recovery. Treatment for symptoms If you have spells of vertigo that are severe or last for hours or days, your doctor or nurse may recommend a medication to relieve severe vertigo symptoms, like vomiting. Treatment with medication is not usually recommended if your vertigo lasts only second or minutes. Possible medication treatments include: -An antihistamine, such as the prescription medicine meclizine (Antivert), or non-prescription medicines like dimenhydrinate (Dramamine), or diphenhydramine (Benadryl). -Prescription anti-nausea medicines, such as promethazine (Phenergan), metoclopramide (Reglan), or ondansetron (Zofran). -Prescription sedative medicines, such as diazepam (Valium), lorazepam (Ativan ), or clonazepam (Klonopin) Most of these medicines make you sleepy, and you should not take them before you work or drive. You should only take prescription medicines to treat severe vertigo symptoms, and you should stop the medicine when your symptoms improve. Continuing to take these medications can impair long-term recovery. Canalith repositioning Canalith repositioning is a treatment that may be recommended for people with benign paroxysmal positional vertigo (BPPV). The treatment will be done by a doctor, nurse, or therapist in the office by moving your head into certain positions, sometimes called the Melissa maneuver. These movements encourage the calcium collection to move into a part of the ear where it will be reabsorbed. You may begin to feel better immediately after this treatment or within a day or two. If the treatment is successful, you may be given instructions on how to perform similar movements at home, if the symptoms return. Balance rehabilitation Most patients with vertigo prefer to keep their head still. However, staying still and not moving your head can make it harder to cope with vertigo and in the long-term can delay recovery. Rehabilitation can help people recover from vertigo that is caused by injury to the vestibular system. Balance rehabilitation works by helping your brain adjust its response to changes in the vestibular system. The therapy can also help train your eyes and other senses to "learn" how to adapt. This therapy is most helpful when it is started as soon as possible after you develop vertigo. During rehabilitation, you will work with a therapist who will teach to you perform exercises at home. For example, you might start by focusing on an object with a blank background and move your head slowly to the right and left and up and down. You would perform this exercise for several minutes two to three times per day. If you have trouble standing or walking because of vertigo, you are at risk for falling. In older adults, falls can lead to serious complications, such as a broken hip. Talk to your doctor, nurse, or therapist about your concerns. To reduce the risk of falls, get rid of hazards in your home, such as loose electrical cords and slippery rugs, and avoid walking in unfamiliar areas that are not lighted. - Diet and Activity Activity: increase activity as tolerated Diet: diabetic diet, low fat, low cholesterol Interval History: Seen and examined at bedside; patient says she feels significantly better and would like to go home today. Still with mild vertigo upon standing but not with sitting up or head movement. No nausea. She thinks steroids are helping. Says she is almost back to baseline. No chest pain/heaviness/discomfort, no SOB. Hospital course: See assessment and plan for hospital course - Time Spent with Patient Total time spent providing and/or coordinating discharge services: - Constitutional Vitals: Temp Pulse Resp BP Pulse Ox 97.5 F L 76 18 116/71 96 05/09/17 08:00 05/09/17 08:00 05/09/17 08:00 05/09/17 08:00 05/09/17 08:00 General appearance: Present: cooperative, A&O X 3, no acute distress, answers questions appropriately - Head Head exam: Present: atraumatic, normocephalic - Eye Eye exam: Present: PERRL, conjuntiva pink, sclera anicteric Pupils: Present: PERRL - Neck Neck exam general surgery: Present: supple, trachea midline. Absent: lymphadenopathy - Respiratory Respiratory exam: Present: CTAB. Absent: accessory muscle use, rales, rhonchi, wheezes - Cardiovascular Cardiovascular exam: Present: RRR, +S1, +S2. Absent: diastolic murmur, gallop, rubs, systolic murmur - GI/Abdominal GI/Abdominal exam: Present: normal bowel sounds, soft, no peritoneal signs. Absent: distended, tenderness - Extremities Exam Extremities exam: Present: warm, radial pulses palpable and symmetrical. Absent : calf tenderness, cyanotic, pedal edema - Neurological Exam Neurological exam: Present: CN II-XII intact, oriented X3, no focal deficits. Absent: pronater drift, facial droop, speech deficit - Skin Skin exam: Present: dry, intact
--- NOTE | 2017-05-09 09:15 | Neurology - Consult Note ---
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 Patient has improved significantly to steroid therapy and is currently having non-focal neurological examination. She no longer has nystagmus. Okay to discharge from neurology perspective Qualifiers: Laterality: unspecified laterality Qualified Code(s): H81.20 - Vestibular neuronitis, unspecified ear History of Present Illness Chief complaint: Dizziness balance difficulty and nausea HPI: Ms. Torres is a 71 year old female with PMH significant for HTN who developed subacute onset of dizziness, vertigo, nausea and balance difficulty. Symptoms started on and worsened on Friday. She describes a vertiginous feeling, associated with nausea, vomiting aggravated by sitting up or any movements. She has no hearing loss, no tinnitus. She has no prior such history of dizziness. She feels that her right eye is drawing. MRI of brain showed no acute intracranial abnormality. AT the time of this interview, patient's symptoms significantly improved. Past Med Surg Social Fam HX - Past Medical History Medical history: atrial fibrillation, diabetes, hypertension Psychiatric history: no psych history - Past Surgical History Surgical History: cholecystectomy, hysterectomy - Social History Smoking Status: Never smoker Smokeless Tobacco Status: No Alcohol use: none Drug use: none - Family History Mother Hx Family Cardiac Disorders: Yes Hx Family Respiratory Disorders: Yes Hx Family Cancer: No Hx Family GI Disorders: No Hx Family Genitourinary Disorders: Yes (UTI s) Hx Family Endocrine Disorder: Yes (DM) Hx Family Musculoskeletal Disorders: No Hx Family Neuromuscular Disorders: No Hx Family Neurologic Disorders: No Hx Family HEENT Disorders: No Hx Family Autoimmune Disorders: No Hx Family Reproductive Disorders: No Hx Family Psychosocial Disorders: No Father Hx Family Cardiac Disorders: No Hx Family Respiratory Disorders: Yes Hx Family Cancer: No Hx Family GI Disorders: Yes Hx Family Genitourinary Disorders: No Hx Family Endocrine Disorder: No Hx Family Musculoskeletal Disorders: No Hx Family Neuromuscular Disorders: No Hx Family Neurologic Disorders: No Hx Family HEENT Disorders: No Hx Family Autoimmune Disorders: No Hx Family Reproductive Disorders: No Hx Family Psychosocial Disorders: No Hx Family Medical Disorders: No Medications and Allergies Aspirin [Lo-Dose Aspirin EC] 81 mg PO DAILY 05/19/16 [History] Diltiazem CD (24hr) [Cardizem CD] 300 mg PO DAILY 05/19/16 [History] GlipiZIDE [Glipizide Xl] 5 mg PO DAILY 05/19/16 [History] Labetalol HCl 200 mg PO BID 05/19/16 [History] Losartan [Cozaar] 25 mg PO DAILY 05/19/16 [History] Omeprazole 20 mg PO DAILY 05/19/16 [History] metFORMIN [Glucophage] 500 mg PO BIDWM 05/19/16 [History] Potassium Citrate [Urocit-K] 10 meq PO TID 05/06/17 [History] Meclizine HCl [Verticalm] 50 mg PO TID #180 tablet 05/09/17 [Rx] predniSONE [PredniSONE] 40 mg PO DAILY #6 tablet 05/09/17 [Rx] 3 Allergy/AdvReac Type Severity Reaction Status Date / Time No Known Allergies Allergy Verified 05/06/17 13:16 All Systems: A 10-system review of systems was performed and is negative for pertinent findings except as documented above in the HPI. Physical Examination - Vital Signs Vital Signs: Initial Vital Signs Temp Pulse Resp BP Pulse Ox 98.8 F 74 18 174/90 93 05/06/17 13:12 05/06/17 13:12 05/06/17 13:12 05/06/17 13:12 05/06/17 13:12 - Constitutional General appearance: comfortable - Neurologic Detailed motor examination: full strength in all major muscle groups Motor examination - right side: 5/5: deltoids, biceps, triceps, wrist flexion, wrist extension, display mechanic, hip flexors, tibialis Anterior, quadriceps, toe extension (EHL), plantarflexion Motor examination - left side: 5/5: deltoids, biceps, triceps, wrist flexion, wrist extension, hip flexors, display mechanic, quadriceps, tibialis Anterior, toe extension (EHL), plantarflexion Reflexes: Biceps: 2+, Triceps: 2+, Brachioradialis: 2+, Patella: 2+, Achilles: 2 + Mental Status Examination: awake, alert, oriented to person, oriented to place, oriented to time, follows commands appropriately, answers questions appropriately, no agnosia, no aphasia, no aproxia Cranial nerve examination: PERRL, EOMI, visual golden intact, corneal reflexes brisk symmetrically, sensory to face intact, mastication intact, no facial asymmetry is present, no dysarthria, hearing is intact symmetrically, soft palate elevates bilaterally upon phonation, gag reflex intact, flexes SCM and trapezius muscles symmetrically with full power, tongue protrudes midline, no atrophy or facial fasiculations present Cerebellar examination: no dysmetria, performs finger to nose and heel to brunner symmetrically without ataxia, no gait ataxia, no truncal ataxia, no difficulty with rapid alternating movements Results - Laboratory Findings CBC and BMP: 05/07/17 00:27 05/07/17 00:27 Abnormal lab findings: Abnormal lab results BUN/Creatinine Ratio 28 (6-26) H 05/07/17 00:27 Glucose 124 mg/dL (70-105) H 05/07/17 00:27 POC Glucose 201 (58-89) H 05/08/17 15:56 Urine Clarity Cloudy (Clear) A 05/06/17 13:36 Ur Leukocyte Esterase Small (Negative) H 05/06/17 13:36 Ur Squamous Epith Cells Many per lpf (None-Few) H 05/06/17 13:36 - Diagnostic Findings Additional findings: Carotid artery duplex study: Impressions: The bilateral carotid arteries have minimal plaque throughout. EV/EV echocardiogram Impressions: LVEF 60%. LV wall thickness upper limits of normal. Mild left ventricular diastolic dysfunction. Normal right ventricular structure and function. No significant valvular dysfunction. No pulmonary hypertension by TR gradient. MR/MR head/brain wo con IMPRESSION: Mild cerebral atrophy. Mild chronic small vessel ischemic changes. No acute brain parenchymal abnormality. Consult Discharge Plan - Plan Instructions: Prednisone (By mouth), Meclizine (By mouth), Vertigo (DC) Additional Instructions: INTRODUCTION Dizziness is a feeling that may be hard to describe, but often includes a feeling that you are spinning or tilting, or that you are about to fall or pass out. Dizziness can also cause you to feel lightheaded or giddy, or have difficulty walking straight. Many people who feel dizzy have vertigo, a specific type of dizziness. Vertigo is a sense of spinning dizziness, swaying, or tilting. You may feel that you are moving or that the room is moving around you. Vertigo can be caused by a number of different problems involving the inner ear or brain. Some of these problems are not serious while others can be life threatening. This article will describe the symptoms of vertigo and help you to know when to seek help. VERTIGO SYMPTOMS The most common symptoms of vertigo include a feeling of: -Spinning (either you or the room around you) -Tilting or swaying -Feeling off balance These feelings come and go, and may last seconds, hours, or days. You may feel worse when you move your head, change positions (stand up, roll over), cough, or sneeze. Along with vertigo, you may: -Vomit or feel nauseous -Have a headache or be sensitive to light and noise -See double, have trouble speaking or swallowing, or feel weak -Feel short of breath or sweaty, have a racing heart beat If you seek treatment for vertigo, you should mention how long these symptoms last, what triggers the symptoms, and any other associated problems. These clues can help point to the cause of vertigo. COMMON CAUSES OF VERTIGO Collections of calcium, inflammation, and certain infections can cause problems in the vestibular system. The vestibular system includes parts of the inner ear and nervous system, which controls balance -Benign paroxysmal positional vertigo (BPPV) BPPV, sometimes called benign positional vertigo, positional vertigo, postural vertigo, or simply vertigo, is a type of vertigo that develops due to collections of calcium in the inner ear. These collections are called canaliths. Moving the canaliths (called canalith repositioning) is a common treatment for BPPV. Vertigo is typically brief in people with BPPV, lasting seconds to minutes. Vertigo can be triggered by moving the head in certain ways. -Meniere disease Meniere disease is a condition that causes repeated spells of vertigo, hearing loss, and ringing in the ears. Spells can last several minutes or hours. It is probably caused by a buildup of fluid in the inner ear. -Vestibular neuritis Vestibular neuritis, also known as labyrinthitis, is probably caused by a virus that causes swelling around the balance nerve. People with vestibular neuritis develop sudden, severe vertigo, nausea, vomiting , and difficulty walking or standing up; these problems can last several days. Some people also develop difficulty hearing in one ear. -Head injury Head injuries can affect the vestibular system in a variety of ways, and lead to vertigo. -Medications Other medications can affect the function of the inner ear or brain and lead to vertigo. Rarely, some medications can actually damage the inner ear. -Migraines In a condition called vestibular migraine or migrainous vertigo, vertigo can be caused by a migraine. This type of vertigo usually happens along with a headache, but some patients have migraines without headache. -Other brain problems Stroke or TIA (transient ischemic attack), bleeding in the brain, or multiple sclerosis can also cause vertigo. There are usually other symptoms, besides vertigo, that happen with these brain problems. WHEN TO SEEK HELP You should seek help immediately if you have dizziness or vertigo along with any of the following: -New or severe headache -Temperature greater than 100.4F (38C) -Seeing double or having trouble seeing clearly -Trouble speaking or hearing -Weakness in an arm or leg -An inability to walk without assistance -Passing out -Numbness or tingling -Chest pain -Vomiting that will not stop In addition, you should seek help immediately if you have vertigo that lasts for several minutes or more if you: -Are an older adult -Have had a stroke in the past -Have risk factors for stroke (high blood pressure, diabetes, smoking) If you have dizziness or vertigo that comes and goes but you do not have any of the above problems, make an appointment with your doctor or nurse. He or she will perform a physical exam and ask about your symptoms and medical history. Your doctor or nurse will probably check the following: -Your eyes You might be asked to follow an object with your eyes, or focus on something while moving your head from side to side. -Your balance and gait This involves watching you walk, to see if you lean or tilt to one side, as well as checking your balance while you stand still. -Your hearing Your doctor or nurse will check your hearing in both ears. Depending on what they find during your examination, your doctor might do additional tests as well. In some cases, he or she will order an imaging test, such as an MRI, to look at what is going on in your brain. VERTIGO TREATMENT In most people, vertigo is bothersome but it is not caused by a serious problem. Treatment for vertigo aims to treat the underlying cause ( if the cause is known), relieve the bothersome symptoms, and help with recovery. This section will discuss treatment for symptoms and treatments to help with recovery. Treatment for symptoms If you have spells of vertigo that are severe or last for hours or days, your doctor or nurse may recommend a medication to relieve severe vertigo symptoms, like vomiting. Treatment with medication is not usually recommended if your vertigo lasts only second or minutes. Possible medication treatments include: -An antihistamine, such as the prescription medicine meclizine (Antivert), or non-prescription medicines like dimenhydrinate (Dramamine), or diphenhydramine (Benadryl). -Prescription anti-nausea medicines, such as promethazine (Phenergan), metoclopramide (Reglan), or ondansetron (Zofran). -Prescription sedative medicines, such as diazepam (Valium), lorazepam (Ativan ), or clonazepam (Klonopin) Most of these medicines make you sleepy, and you should not take them before you work or drive. You should only take prescription medicines to treat severe vertigo symptoms, and you should stop the medicine when your symptoms improve. Continuing to take these medications can impair long-term recovery. Canalith repositioning Canalith repositioning is a treatment that may be recommended for people with benign paroxysmal positional vertigo (BPPV). The treatment will be done by a doctor, nurse, or therapist in the office by moving your head into certain positions, sometimes called the Melissa maneuver. These movements encourage the calcium collection to move into a part of the ear where it will be reabsorbed. You may begin to feel better immediately after this treatment or within a day or two. If the treatment is successful, you may be given instructions on how to perform similar movements at home, if the symptoms return. Balance rehabilitation Most patients with vertigo prefer to keep their head still. However, staying still and not moving your head can make it harder to cope with vertigo and in the long-term can delay recovery. Rehabilitation can help people recover from vertigo that is caused by injury to the vestibular system. Balance rehabilitation works by helping your brain adjust its response to changes in the vestibular system. The therapy can also help train your eyes and other senses to "learn" how to adapt. This therapy is most helpful when it is started as soon as possible after you develop vertigo. During rehabilitation, you will work with a therapist who will teach to you perform exercises at home. For example, you might start by focusing on an object with a blank background and move your head slowly to the right and left and up and down. You would perform this exercise for several minutes two to three times per day. If you have trouble standing or walking because of vertigo, you are at risk for falling. In older adults, falls can lead to serious complications, such as a broken hip. Talk to your doctor, nurse, or therapist about your concerns. To reduce the risk of falls, get rid of hazards in your home, such as loose electrical cords and slippery rugs, and avoid walking in unfamiliar areas that are not lighted. Referrals: Yuriy Benz DO [Primary Care Provider] - 05/15/17 9:30 am Rita Swain DO [Non-Partnered Physician] - 06/12/17 10:30 am Prescriptions: Meclizine HCl [Verticalm] 50 mg PO TID #180 tablet predniSONE [PredniSONE] 40 mg PO DAILY #6 tablet
[2017-05-09] MEDS ORDERED: Diltiazem CD (24hr) 300 MG CAPSULE PO SCH (23:00)
== END 2017-05-09 10:32 | disposition home or self-care (01) ==
LOC: 3BNU 13:11 → EMEROO 13:11 → 3BNU 17:05
PROVIDERS: ADMIT Nurse Practitioner; ATTEND Registered Nurse

== ENCOUNTER 2019-06-25 09:50 | Observation (INO) ==
[2019-06-25] MEDS ORDERED: 0.9 % Sodium Chloride 500 ML IVC ONE (09:57)
[2019-06-25] MEDS ORDERED: Ondansetron 4 MG/2 ML VIAL IVP ONE (10:04)
[2019-06-25] MEDS ORDERED: *HR* HYDROmorphone (PF) 1 MG/ML SYRINGE IVP ONE (10:04)
[2019-06-25 10:19] LABS: Basophils % 0.7 %; Eosinophils # 0.1 K/mcL (0.0-0.6); Eosinophils % 2.2 %; Hematocrit 42.6 % (35.3-44.9); Immature Granulocytes % 1.7 % (0-4); Lymphocytes # 1.1 K/mcL (0.6-4.6); Lymphocytes % 26.4 %; Mean Corpuscular HGB Conc 35.2 g/dL (31.6-35.5); Mean Corpuscular Hemoglobin 30.5 pg (28.0-33.3); Mean Corpuscular Volume 86.6 fL (83.0-100.0); Mean Platelet Volume 10.2 fL (9.4-12.4); Monocytes # 0.2 K/mcL (0.0-1.3); Monocytes % 5.7 %; Neutrophils # 2.6 K/mcL (1.6-8.9); Platelet Count 214 K/mcL (140-400); Red Blood Count 4.92 M/mcL (3.82-4.97); Red Cell Distribution Width 13.7 % (11.5-14.5); Segmented Neutrophils % 63.3 %; White Blood Count 4.1 K/mcL (4.3-11.1)
[2019-06-25 10:39] LABS: Bilirubin,Urine Negative (Negative); Blood,Urine Trace (Negative); Clarity,Urine Clear (Clear); Color,Urine Yellow (Yellow); Glucose,Urine (UA) 500 mg/dL (Normal); Ketones,Urine Negative (Negative); Leukocyte Esterase,Urine Small (Negative); Nitrite,Urine Negative (Negative); PH,Urine 7.5 pH Units (5.0-8.0); Protein,Urine 100 mg/dL (Neg-Trace); Specific Gravity,Urine 1.017 (1.010-1.025); Urobilinogen,Urine Normal (Normal)
[2019-06-25 10:40] LABS: Alanine Aminotransferase 20 Units/L (7-52); Albumin 4.3 g/dL (3.5-5.7); Albumin/Globulin Ratio 1.3 (1.1-2.2); Alkaline Phosphatase 100 Units/L (34-104); Aspartate Amino Transferase 21 Units/L (13-39); Bilirubin,Total 0.4 mg/dL (0.3-1.0); Blood Urea Nitrogen 14 mg/dL (8-23); Calcium 9.7 mg/dL (8.6-10.3); Carbon Dioxide 24 mEq/L (23-29); Chloride 98 mEq/L (98-107); Globulin 3.2 g/dL (2.4-3.5); Glucose 241 mg/dL (70-105); Osmolality,Calculated 288 (280-300); Potassium 4.6 mEq/L (3.5-5.1); Sodium 135 mEq/L (136-145); Total Protein 7.5 g/dL (6.4-8.9)
[2019-06-25 10:42] LABS: Bacteria,Urine None Seen per hpf (None-Few); Hyaline Casts,Urine None Seen per lpf (None-Few); Squamous Epithelial Cell,Urine Many per lpf (None-Few); WBC,Urine 0-3 per hpf (0-3)
[2019-06-25] MEDS ORDERED: *HR* HYDROcodone/Acet 5/325 mg TABLET PO ONE (11:13)
[2019-06-25 12:03] LABS: BUN/Creatinine Ratio 19 (6-26); eGFR For African Americans > 60 (> 60); eGFR For Non-African Americans > 60 (> 60)
[2019-06-25] MEDS ORDERED: Ondansetron 4 MG/2 ML VIAL IVP PRN (12:06)
[2019-06-25] MEDS ORDERED: Naloxone 0.4 MG/ML INJ IVP PRN (12:06)
[2019-06-25] MEDS ORDERED: Acetaminophen 325 MG TABLET PO PRN (12:06)
[2019-06-25] MEDS ORDERED: *HR* Labetalol 20 MG/4 ML SYRINGE IVP PRN (12:11)
[2019-06-25] MEDS ORDERED: *HR* HYDROmorphone 2 MG/ML SYRINGE IVP PRN (12:12)
[2019-06-25] MEDS ORDERED: D5% in Water 1,000 ML IVC PRN (16:03)
[2019-06-25] MEDS ORDERED: *HR* Dextrose 50 % in Water (Syg) 50 ML SYRINGE IVP PRN (16:03)
[2019-06-25] MEDS ORDERED: Dextrose Gel 15 GM/37.5 ML TUBE PO PRN ×2 (16:03)
[2019-06-25] MEDS: cefTRIAXone 1,000 MG in 0.9 % Sodium Chloride Mini Bag 100 ML IVPB SCH (16:47)
[2019-06-25] MEDS: Ringers Solution, Lactated 1,000 ML IVC SCH (16:47)
[2019-06-25] MEDS: Insulin LISPRO 300 UNITS/3 ML VIAL SQ SCH (16:48)
[2019-06-25 17:47] LABS: Estimated Average Glucose 171 mg/dl
[2019-06-25] MEDS ORDERED: Cyanocobalamin (B-12) 1,000 MCG TABLET PO SCH (20:00)
[2019-06-25] MEDS ORDERED: Insulin DETEMIR 100 UNIT/ML X5UNITS SQ SCH (21:00)
[2019-06-26] MEDS: Ringers Solution, Lactated 1,000 ML IVC SCH (06:39)
[2019-06-26 07:51] LABS: Basophils % 0.3 %; Eosinophils # 0.1 K/mcL (0.0-0.6); Hematocrit 38.3 % (35.3-44.9); Immature Granulocytes % 1.2 % (0-4); Lymphocytes # 0.9 K/mcL (0.6-4.6); Mean Corpuscular HGB Conc 34.5 g/dL (31.6-35.5); Mean Corpuscular Hemoglobin 30.6 pg (28.0-33.3); Mean Corpuscular Volume 88.7 fL (83.0-100.0); Mean Platelet Volume 10.5 fL (9.4-12.4); Monocytes # 0.3 K/mcL (0.0-1.3); Monocytes % 7.8 %; Neutrophils # 2.1 K/mcL (1.6-8.9); Platelet Count 165 K/mcL (140-400); Red Blood Count 4.32 M/mcL (3.82-4.97); Red Cell Distribution Width 13.8 % (11.5-14.5); Segmented Neutrophils % 61.7 %; White Blood Count 3.4 K/mcL (4.3-11.1)
[2019-06-26 07:58] LABS: Hemoglobin 13.2 g/dL (11.5-15.4)
[2019-06-26 08:12] LABS: BUN/Creatinine Ratio 19 (6-26); Blood Urea Nitrogen 14 mg/dL (8-23); Calcium 8.9 mg/dL (8.6-10.3); Carbon Dioxide 28 mEq/L (23-29); Chloride 101 mEq/L (98-107); Glucose 189 mg/dL (70-105); Magnesium 1.4 mg/dL (1.6-2.6); Osmolality,Calculated 296 (280-300); Potassium 4.2 mEq/L (3.5-5.1); Sodium 140 mEq/L (136-145); eGFR For African Americans > 60 (> 60); eGFR For Non-African Americans > 60 (> 60)
[2019-06-26] MEDS: cefTRIAXone 1,000 MG in 0.9 % Sodium Chloride Mini Bag 100 ML IVPB SCH (08:55)
[2019-06-26] MEDS: Insulin LISPRO 300 UNITS/3 ML VIAL SQ SCH (08:59)
[2019-06-26] MEDS ORDERED: Aspirin Enteric Coated 81 MG Tablet PO SCH (09:00)
[2019-06-26 12:00] VITALS: BP 166/76
[2019-06-26] MEDS ORDERED: DilTIAZem CD (24hr) 300 MG CAP.ER.24H PO SCH (18:00)
== END 2019-06-26 14:10 | disposition home or self-care (01) ==
LOC: EMEROOARM 09:50 → 3BNU 09:50 → SUATTDRO 12:04 → 3BNU 13:00
PROVIDERS: ADMIT Pharmacist; ATTEND Student in an Organized Health Care Education/Training Program

== ENCOUNTER 2020-08-12 15:38 | Observation (INO) ==
[2020-08-12 16:06] LABS: INR 1.1; Prothrombin Time 13.1 Seconds (9.4-12.1)
[2020-08-12 16:09] LABS: Activated Partial Thrombo Time 30.2 Seconds (26.0-36.0)
[2020-08-12] MEDS ORDERED: Isovue-370 500 ML BOTTLE IVP ONE ×2 (16:14→16:15)
[2020-08-12 16:19] LABS: BUN/Creatinine Ratio 25 (6-26); Blood Urea Nitrogen 19 mg/dL (8-23); Carbon Dioxide 23 mEq/L (23-29); Chloride 102 mEq/L (98-107); Glucose 178 mg/dL (70-105); Osmolality,Calculated 285 (280-300); Potassium 4.8 mEq/L (3.5-5.1); Sodium 134 mEq/L (136-145); Troponin I < 0.03 ng/mL (< 0.04); eGFR For African Americans > 60 (> 60); eGFR For Non-African Americans > 60 (> 60)
[2020-08-12 16:28] LABS: Hemoglobin 13.2 g/dL (11.5-15.4); Mean Corpuscular Hemoglobin 30.3 pg (28.0-33.3); Mean Platelet Volume 11.6 fL (9.4-12.4); Platelet Count 177 K/mcL (140-400); Red Blood Count 4.35 M/mcL (3.82-4.97); Red Cell Distribution Width 14.4 % (11.5-14.5); White Blood Count 4.4 K/mcL (4.3-11.1)
[2020-08-12] MEDS ORDERED: Aspirin 325 MG TABLET PO ONE (17:21)
[2020-08-12] MEDS ORDERED: Dextrose Gel 15 GM/37.5 ML TUBE PO PRN ×2 (19:37)
[2020-08-12] MEDS ORDERED: D5% in Water 1,000 ML IVC PRN (19:37)
[2020-08-12] MEDS ORDERED: *HR* Dextrose 50 % in Water (Vial) 50 ML VIAL IVP PRN (19:37)
[2020-08-12] MEDS ORDERED: Naloxone 0.4 MG/ML INJ IVP PRN (19:40)
[2020-08-12] MEDS ORDERED: Ondansetron 4 MG/2 ML VIAL IVP PRN (19:40)
[2020-08-12 20:28] LABS: Chol/HDL Ratio 4.3 (0-4.9); Cholesterol 201 mg/dL (< 200); HDL Cholesterol 47 mg/dL (40-59); LDL Cholesterol,Calculated 82 mg/dL (< 100); Triglycerides 361 mg/dL (< 150)
[2020-08-12] MEDS ORDERED: *HR* Metoprolol 5 MG/5 ML VIAL IVP PRN (20:45)
[2020-08-12] MEDS: Potassium Citrate 10 MEQ TABLET.ER PO SCH (21:53)
[2020-08-13] MEDS: Insulin LISPRO 300 UNITS/3 ML VIAL SUBQ SCH ×5 (02:37→20:27)
[2020-08-13 04:13] LABS: Hematocrit 38.6 % (35.3-44.9); Mean Corpuscular HGB Conc 33.7 g/dL (31.6-35.5); Mean Corpuscular Volume 88.9 fL (83.0-100.0); Platelet Count 216 K/mcL (140-400); Red Blood Count 4.34 M/mcL (3.82-4.97); Red Cell Distribution Width 14.2 % (11.5-14.5); White Blood Count 4.3 K/mcL (4.3-11.1)
[2020-08-13 04:33] LABS: BUN/Creatinine Ratio 26 (6-26); Blood Urea Nitrogen 16 mg/dL (8-23); Calcium 9.3 mg/dL (8.6-10.3); Carbon Dioxide 25 mEq/L (23-29); Chloride 104 mEq/L (98-107); Glucose 101 mg/dL (70-105); Osmolality,Calculated 289 (280-300); Potassium 3.8 mEq/L (3.5-5.1); Sodium 139 mEq/L (136-145); eGFR For African Americans > 60 (> 60); eGFR For Non-African Americans > 60 (> 60)
[2020-08-13 04:59] LABS: Estimated Average Glucose 160 mg/dl; Hemoglobin A1C 7.2 %
[2020-08-13] MEDS: Aspirin Enteric Coated 81 MG Tablet PO SCH (08:28)
[2020-08-13] MEDS: Potassium Citrate 10 MEQ TABLET.ER PO SCH ×3 (08:28→20:33)
[2020-08-13] MEDS ORDERED: Perflutren Lipid Microsphere 1.3 ML in 0.9 % Sodium Chloride 8.7 ML IVP PRN (08:37)
[2020-08-13] MEDS ORDERED: predniSONE 20 MG TABLET PO ONE (11:42)
[2020-08-13] MEDS ORDERED: Nitroglycerin 0.4 MG TAB.SUBL SL PRN (13:18)
[2020-08-13] MEDS ORDERED: Cyanocobalamin (B-12) 1,000 MCG TABLET PO SCH (13:30)
[2020-08-13] MEDS: valACYclovir 500 MG TABLET PO SCH ×2 (14:27→20:28)
[2020-08-13] MEDS: Artificial Tears SOLN 15 ML BOTTLE RIGHT EYE SCH ×3 (14:27→20:27)
[2020-08-13] MEDS ORDERED: DilTIAZem CD (24hr) 300 MG CAP.ER.24H PO SCH (18:00)
[2020-08-13] MEDS ORDERED: Lacri-Lube 3.5 GM TUBE OP SCH (21:00)
[2020-08-14] MEDS ORDERED: Magnesium Oxide 400 MG TABLET PO SCH (09:00)
[2020-08-14 10:43] VITALS: BP 181/86
[2020-08-14] MEDS: Aspirin Enteric Coated 81 MG Tablet PO SCH (10:51)
[2020-08-14] MEDS: valACYclovir 500 MG TABLET PO SCH (10:51)
[2020-08-14] MEDS: Potassium Citrate 10 MEQ TABLET.ER PO SCH (10:51)
[2020-08-14] MEDS: Artificial Tears SOLN 15 ML BOTTLE RIGHT EYE SCH (10:52)
[2020-08-14] MEDS: Insulin LISPRO 300 UNITS/3 ML VIAL SUBQ SCH ×2 (10:52)
== END 2020-08-14 12:25 | disposition home or self-care (01) ==
LOC: 3BNU 15:38 → EMEROOARM 15:38 → 3BNU 21:15
PROVIDERS: ADMIT Family Medicine; ATTEND Family Medicine